=== PATIENT | female | born 1975 | race Caucasian/White ===

== ENCOUNTER 2024-03-26 19:58 | Emergency (ER) | payer OTHER ==
[2024-03-26 20:23] VITALS: TEMP 97.7
--- NOTE | 2024-03-26 20:24 | ERPHSYRPT ---
- History of Present Illness Time Seen by Provider: 03/26/24 20:22 Source: patient Exam Limitations: no limitations Physician History: 48-year-old female presents to our ED accompanied by her for evaluation of symptoms developed after a B12 shot. Patient had a B12 shot today. Shortly thereafter within minutes patient began to experience dizziness heart palpita tions cramping of her hands. No chest pain. Mild short of breath. No vomiting no diarrhea no rash. No fever. Patient states the dizziness resolved but she is still experiencing cramping of her hands. On exam cramping of her hands were observed with spasms of her thenar eminence muscles. Patient otherwise feels well. She is conversant and in no acute distress. at bedside. They voiced no other complaints or concerns at this time. Portions of this note were created with voice recognition technology. There may be grammatical, spelling, punctuation or sound alike errors Timing/Duration: today Severity: moderate Modifying Factors: Improves With: nothing Associated Symptoms: denies symptoms Allergies/Adverse Reactions: No Known Drug Allergies Allergy (Verified 03/26/24 20:07) Home Medications: Sertraline HCl [Zoloft] 100 mg PO DAILY 08/24/21 [History] Dextroamphetamine/Amphetamine [Adderall Xr 5 mg Capsule] 5 mg PO DAILY 03/26/24 [History] Losartan/Hydrochlorothiazide [Losartan-Hctz 50-12.5 mg Tab] 1 each PO DAILY 03/26/24 [History] Hx Tetanus, Diphtheria Vaccination/Date Given: Yes Hx Influenza Vaccination/Date Given: No Hx Pneumococcal Vaccination/Date Given: No - Review of Systems Constitutional: No Symptoms, No Fever, No Chills Eyes: No Symptoms Ears, Nose, & Throat: No Symptoms Respiratory: No Symptoms, No Cough, No Dyspnea Cardiac: No Symptoms, No Chest Pain, No Edema, No Syncope Abdominal/Gastrointestinal: No Symptoms, No Abdominal Pain, No Nausea, No Vom iting, No Diarrhea Genitourinary Symptoms: No Symptoms, No Dysuria Musculoskeletal: No Symptoms, No Back Pain, No Neck Pain Skin: No Symptoms, No Rash Neurological: No Symptoms, No Dizziness, No Focal Weakness, No Sensory Changes Psychological: No Symptoms Endocrine: No Symptoms Hematologic/Lymphatic: No Symptoms Immunological/Allergic: No Symptoms All Other Systems: Reviewed and Negative - Past Medical History Pertinent Past Medical History: Yes Neurological History: No Pertinent History ENT History: No Pertinent History Cardiac History: Hypertension Respiratory History: No Pertinent History Endocrine Medical History: No Pertinent History Musculoskeletal History: Fractures GI Medical History: No Pertinent History History: No Pertinent History Psycho-Social History: Depression Female Reproductive Disorders: No Pertinent History Other Medical History: skin ca - Past Surgical History Past Surgical History: Yes (2018) Neuro Surgical History: No Pertinent History Cardiac: No Pertinent History Gastrointestinal: No Pertinent History Genitourinary: No Pertinent History Musculoskeletal: Orthopedic Surgery Female Surgical History: Other Other Surgical History: ablasion, foot, cancer removal - Social History Smoking Status: Current every day smoker How long have you smoked: 28 yrs Exposure to second hand smoke: Yes Drug Use: none Patient Lives Alone: No - Nursing Vital Signs Nursing Vital Signs: Initial Vital Signs Pulse Rate 89 03/26/24 20:08 Respiratory Rate 17 03/26/24 20:08 Blood Pressure 149/83 03/26/24 20:08 O2 Sat by Pulse Oximetry 100 03/26/24 20:08 Pain Scale Pain Intensity 0 - Physical Exam General Appearance: no apparent distress, alert Eye Exam: PERRL/EOMI, eyes nml inspection Ears, Nose, Throat Exam: normal ENT inspection, TMs normal, pharynx normal, moist mucous membranes Neck Exam: normal inspection, non-tender, supple, full range of motion Respiratory Exam: normal breath sounds, lungs clear, airway intact, No respiratory distress Cardiovascular Exam: regular rate/rhythm, normal heart sounds, normal peripheral pulses Gastrointestinal/Abdomen Exam: soft, normal bowel sounds, No tenderness, No mass Back Exam: normal inspection, normal range of motion, No CVA tenderness, No vertebral tenderness Extremity Exam: normal inspection, normal range of motion, pelvis stable Neurologic Exam: alert, oriented x 3, cooperative, legal secretary II-XII nml as tested, normal mood/affect, sensation nml, No motor deficits Skin Exam: normal color, warm, dry, No rash Lymphatic Exam: No adenopathy SpO2 Interpretation: normal SpO2: 100 O2 Delivery: Room Air - Course Nursing assessment & vital signs reviewed: Yes - CT Exams Head CT Interpretation: Tele-radiologist Report (No acute findings) Ordered Tests: Active Orders 24 hr Category Date Time Status AMA [Release AMA] [email or web address] Care 03/27/24 01:45 Ordered AMA [Release AMA] OM.[email or web address] Care 03/27/24 01:48 Completed Contracts Director STAT Care 03/26/24 20:21 Active EKG-ER Only STAT Care 03/26/24 20:19 Active IV Insertion STAT Care 03/26/24 20:19 Active Pulse Oximetry (ED) STAT Care 03/26/24 20:19 Active HEAD WITHOUT CONTRAST [CT] Stat Exams 03/26/24 22:43 Completed CBC W DIFF Stat Lab 03/26/24 20:25 Completed CMP Stat Lab 03/26/24 20:25 Completed CULTURE,URINE Stat Lab 03/26/24 21:47 Received MAGNESIUM Stat Lab 03/26/24 20:25 Completed TROPONIN Q4H Lab 03/26/24 20:25 Completed TROPONIN Q4H Lab 03/27/24 00:30 Completed UA W/RFX UR CULTURE Stat Lab 03/26/24 21:47 Completed Medication Summary Discontinued Medications Generic Name Dose Route Start Last Admin Trade Name Freq PRN Reason Stop Dose Admin Aspirin 324 mg 03/27/24 01:07 03/27/24 01:11 Aspirin 81 Mg Tab.Chew PO 03/27/24 01:08 324 mg STAT ONE Administration Aspirin Confirm 03/27/24 01:10 Aspirin 81 Mg Tab.Chew Administered 03/27/24 01:11 Dose 324 mg .ROUTE .STK-MED ONE Sodium Chloride 1,000 mls @ 999 mls/hr 03/26/24 21:44 03/26/24 22:53 Sodium Chloride 0.9% 1000 Ml IV 03/26/24 22:44 Infused .Q1H1M STA Infusion Sodium Chloride Confirm 03/26/24 21:45 Sodium Chloride 0.9% 1000 Ml Administered 03/26/24 21:46 Dose 1,000 mls @ ud .ROUTE .STK-MED ONE Nitrofurantoin Macrocrystals 100 mg 03/26/24 22:16 03/26/24 22:19 Nitrofurantoin Macro 100 Mg Capsule PO 03/26/24 22:17 100 mg STAT ONE Administration Nitrofurantoin Macrocrystals Confirm 03/26/24 22:19 Nitrofurantoin Macro 100 Mg Capsule Administered 03/26/24 22:20 Dose 100 mg .ROUTE .STK-MED ONE Lab/Rad Data: Laboratory Result Diagrams 03/26/24 20:25 03/26/24 20:25 Laboratory Results 03/27/24 03/26/24 03/26/24 Range/Units 00:30 21:47 20:25 WBC (3.98-10.04) x10^3/uL RBC (3.93-5.22) x10^6/uL Hgb (11.2-15.7) g/dL Hct (34.1-44.9) % MCV (79.4-94.8) fL MCH (25.6-32.2) pg MCHC (32.2-35.5) g/dL RDW (11.7-14.4) % Plt Count (182-369) x10^3/uL MPV (9.4-12.3) fL Gran % (34.0-71.1) % Immature Gran % (Auto) (0.001-0.429) % Nucleat RBC Rel Count (0.00-0.2) % Eos # (Auto) (0.04-0.36) x10^3/uL Immature Gran # (Auto) (0.001-0.031) x10^3u/L Absolute Lymphs (auto) (1.18-3.74) x10^3/uL Absolute Monos (auto) (0.24-0.86) x10^3/uL Absolute Nucleated RBC (0.00-0.012) x10^3u/L Lymphocytes % (19.3-51.7) % Monocytes % (4.7-12.5) % Eosinophils % (0.7-5.8) % Basophils % (0.1-1.2) % Absolute Granulocytes (1.56-6.13) x10^3/uL Basophils # (0.01-0.08) x10^3/uL Sodium (135-145) mmol/L Potassium (3.5-5.1) mmol/L Chloride (98-107) mmol/L Carbon Dioxide (22-30) mmol/L Anion Gap (5-15) MEQ/L BUN (7-17) mg/dL Creatinine (0.52-1.04) mg/dL Estimated GFR ML/MIN Glucose (74-106) mg/dL Calcium (8.4-10.2) mg/dL Magnesium (1.6-2.3) mg/dL Total Bilirubin (0.2-1.3) mg/dL AST (14-36) U/L ALT (0-35) U/L Alkaline Phosphatase (38-126) U/L Troponin I < 0.012 < 0.012 (0.000-0.033) ng/mL Serum Total Protein (6.3-8.2) g/dL Albumin (3.5-5.0) g/dL Urine Color Yellow (Yellow) Urine Appearance Cloudy A (Clear) Urine pH 6.5 (4.6-8.0) Ur Specific Davis 1.015 (1.005-1.030) Urine Protein Negative (Negative) Urine Glucose (UA) Negative (Negative) mg/dL Urine Ketones Negative (Negative) Urine Blood Trace (Negative) Urine Nitrite Negative (Negative) Urine Bilirubin Negative (Negative) Urine Urobilinogen 1.0 A (0.2) mg/dL Ur Leukocyte Esterase Moderate A (Negative) U Hyaline Cast (Auto) 3-5 A (0-2) /LPF Urine Microscopic RBC >100 A (0-5) /HPF Urine Microscopic WBC 6-10 A (0-5) /HPF Ur Epithelial Cells Few (None Seen) /HPF Urine Bacteria Many A (None Seen) /HPF Urine Culture Reflexed YES (NO) Slides for Path Review 03/26/24 03/26/24 Range/Units 20:25 20:25 WBC 11.5 H (3.98-10.04) x10^3/uL RBC 4.79 (3.93-5.22) x10^6/uL Hgb 15.2 (11.2-15.7) g/dL Hct 44.4 (34.1-44.9) % MCV 92.7 (79.4-94.8) fL MCH 31.7 (25.6-32.2) pg MCHC 34.2 (32.2-35.5) g/dL RDW 12.9 (11.7-14.4) % Plt Count 291 (182-369) x10^3/uL MPV 10.7 (9.4-12.3) fL Gran % 44.9 (34.0-71.1) % Immature Gran % (Auto) 0.3 (0.001-0.429) % Nucleat RBC Rel Count 0.0 (0.00-0.2) % Eos # (Auto) 0.19 (0.04-0.36) x10^3/uL Immature Gran # (Auto) 0.03 (0.001-0.031) x10^3u/L Absolute Lymphs (auto) 5.11 H (1.18-3.74) x10^3/uL Absolute Monos (auto) 0.88 H (0.24-0.86) x10^3/uL Absolute Nucleated RBC 0.00 (0.00-0.012) x10^3u/L Lymphocytes % 44.6 (19.3-51.7) % Monocytes % 7.7 (4.7-12.5) % Eosinophils % 1.7 (0.7-5.8) % Basophils % 0.8 (0.1-1.2) % Absolute Granulocytes 5.15 (1.56-6.13) x10^3/uL Basophils # 0.09 H (0.01-0.08) x10^3/uL Sodium 139 (135-145) mmol/L Potassium 3.7 (3.5-5.1) mmol/L Chloride 103 (98-107) mmol/L Carbon Dioxide 28 (22-30) mmol/L Anion Gap 12.0 (5-15) MEQ/L BUN 15 (7-17) mg/dL Creatinine 0.89 (0.52-1.04) mg/dL Estimated GFR 80.4 ML/MIN Glucose 99 (74-106) mg/dL Calcium 9.8 (8.4-10.2) mg/dL Magnesium 2.2 (1.6-2.3) mg/dL Total Bilirubin 0.40 (0.2-1.3) mg/dL AST 19 (14-36) U/L ALT 14 (0-35) U/L Alkaline Phosphatase 63 (38-126) U/L Troponin I (0.000-0.033) ng/mL Serum Total Protein 7.0 (6.3-8.2) g/dL Albumin 4.0 (3.5-5.0) g/dL Urine Color (Yellow) Urine Appearance (Clear) Urine pH (4.6-8.0) Ur Specific Davis (1.005-1.030) Urine Protein (Negative) Urine Glucose (UA) (Negative) mg/dL Urine Ketones (Negative) Urine Blood (Negative) Urine Nitrite (Negative) Urine Bilirubin (Negative) Urine Urobilinogen (0.2) mg/dL Ur Leukocyte Esterase (Negative) U Hyaline Cast (Auto) (0-2) /LPF Urine Microscopic RBC (0-5) /HPF Urine Microscopic WBC (0-5) /HPF Ur Epithelial Cells (None Seen) /HPF Urine Bacteria (None Seen) /HPF Urine Culture Reflexed (NO) Slides for Path Review YES - Progress Progress: improved Progress Note: 48-year-old female presents to our ED for evaluation of dizziness, heart palpitations, hand cramping. Symptoms started after a dose of B12. Physical exam essentially nonremarkable. Laboratory workup essentially nonremarkable. Urinalysis reveals a urinary tract infection Macrobid administered. CT head negative for acute intracranial pathology. We consulted with teleneurology. There is some issue or misunderstanding with the neurologist and our patient. The neurologist thought patient was someone else. Apparently this did not sit well with our patients and so she decided to leave AGAINST MEDICAL ADVICE. A prescription for Macrobid forwarded to patient's pharmacy. Antibiotic dose administered in our ED. Patient agrees to follow-up with her primary care doctor within 48 hours for reevaluation. Portions of this note were created with voice recognition technology. There may be grammatical, spelling, punctuation or sound alike errors Patient states that she is no longer symptomatic is hungry and just wants to go home. Patient is of sound mind. Patient is appropriate to make informed and independent medical decisions. Patient understands that leaving AGAINST MEDICAL ADVICE can result in delayed diagnosis, increased risk of morbidity, mortality, short and long-term disability including . In spite of these risks, patient has decided to leave AGAINST MEDICAL ADVICE. Patient understands that she may return to our ED at any point if she reconsiders. Patient agrees to follow-up with her primary care doctor within 48 hours for reevaluation. Cesar butler voices no other complaints or concerns at this time. We will release patient AGAINST MEDICAL ADVICE per their request. Complexity problem addressed is moderate acute complicated. No critical care time. Complex of data reviewed and analyzed is extensive. Test ordered test reviewed results analyzed and correlated clinically with history and physical examination. I discussed the case with neurologist however he was unable to complete his exam. Risk of complication and or risk of morbidity/mortality patient management is moderate. A prescription for Macrobid forwarded to patient's pharmacy. Vital stable. Will discharge home. No social determinants of health present impede follow-up. Portions of this note were created with voice recognition technology. There may be grammatical, spelling, punctuation or sound alike errors 03/27/24 01:45 Counseled pt/family regarding: lab results, diagnosis, need for follow-up, rad results - Departure Departure Disposition: Home Clinical Impression: Dizziness, UTI (urinary tract infection) Condition: Stable Critical Care Time: No Referrals: EFE LARA FNP [Primary Care Provider] - Follow up/PCP as directed Instructions: Urinary Tract Infection, Adult ED, Dizziness, Adult ED Additional Instructions: Discharge/Care Plan ODESSA MORENO was seen on 03/26/24 in the Emergency Room. The patient was counseled regarding Diagnosis,Lab results, Imaging studies, need for follow up and when to return to the Emergency Room. Prescriptions given: Discharge Note I have spoken with the patient and/or caregivers. I have explained the patient's condition, diagnosis and treatment plan based on the information available to me at this time. I have answered the patient's and/or caregiver's questions and addressed any concerns. The patient and/or caregivers have as good understanding of the patient's diagnosis, condition and treatment plan as can be expected at this point. The vital signs have been stable. The patient's condition is stable and appropriate for discharge from the emergency department. The patient will pursue further outpatient evaluation with the primary care physician or other designated or consulting physician as outlined in the discharge instructions. The patient and/or caregivers are agreeable to this plan of care and follow-up instructions have been explained in detail. The patient and/or caregivers have received these instruction. The patient/and or caregivers are aware that any significant change in condition or worsening of symptoms should prompt an immediate return to this or the closest emergency department or call 911. Prescriptions: Nitrofurantoin Macro 100 mg [Macrobid 100MG Capsule] 100 mg PO BID 7 Days #14 cap
[2024-03-26 20:32] LABS: Absolute Neutrophil Ct (ANC) 5.15 x10^3/uL (1.56-6.13); BASOPHIL % 0.8 % (0.1-1.2); Basophil (Absolute #) 0.09 x10^3/uL (0.01-0.08); Eosinophil % 1.7 % (0.7-5.8); Eosinophil (Absolute #) 0.19 x10^3/uL (0.04-0.36); Hematocrit 44.4 % (34.1-44.9); Hemoglobin 15.2 g/dL (11.2-15.7); IMMATURE GRAN # 0.03 x10^3u/L (0.001-0.031); IMMATURE GRAN % 0.3 % (0.001-0.429); Lymphocyte (Absolute #) 5.11 x10^3/uL (1.18-3.74); Lymphocytes % 44.6 % (19.3-51.7); Mean Cell Volume 92.7 fL (79.4-94.8); Mean Corpuscular Hemoglobin 31.7 pg (25.6-32.2); Mean Corpuscular Hgb Concent. 34.2 g/dL (32.2-35.5); Mean Platelet Volume 10.7 fL (9.4-12.3); Monocyte (Absolute #) 0.88 x10^3/uL (0.24-0.86); Monocytes % 7.7 % (4.7-12.5); Neutrophil % 44.9 % (34.0-71.1); Platelet Count 291 x10^3/uL (182-369); Red Blood Count 4.79 x10^6/uL (3.93-5.22); Red Cell Distribution Width 12.9 % (11.7-14.4); White Blood Count 11.5 x10^3/uL (3.98-10.04)
[2024-03-26 20:47] LABS: BILIRUBIN,TOTAL 0.4 mg/dL (0.2-1.3); Calcium 9.8 mg/dL (8.4-10.2); Creatinine 1 0.89 mg/dL (0.52-1.04); EST GLOMERULAR FILTRATION RATE 80.4 ML/MIN; MAGNESIUM 2.2 mg/dL (1.6-2.3); Potassium 3.7 mmol/L (3.5-5.1)
[2024-03-26] MEDS ORDERED: Sodium Chloride 0.9% 1000 ML 1,000 ML ONE (21:45)
[2024-03-26] MEDS: Sodium Chloride 0.9% 1000 ML 1,000 ML IV STA (21:47)
[2024-03-26 22:02] LABS: Appearance Cloudy (Clear); Bacteria Many /HPF (None Seen); Bilirubin Negative (Negative); Blood Trace (Negative); Epithelial Cells Few /HPF (None Seen); Glucose, Urine Negative (Negative); Ketones Negative (Negative); Leukocyte Esterase Moderate (Negative); Nitrite Negative (Negative); Ph 6.5 (4.6-8.0); Protein,Urine Dip Negative (Negative); RBC >100 /HPF (0-5); Specific Gravity 1.015 (1.005-1.030)
[2024-03-26 22:03] LABS: ADD URINE CULTURE? YES (NO)
[2024-03-26] MEDS ORDERED: Macrobid 100MG Capsule ONE (22:19)
[2024-03-26] MEDS: Macrobid 100MG Capsule PO ONE (22:19)
[2024-03-26 22:22] LABS: Slide Review 1 YES
--- NOTE | 2024-03-26 23:42 | XRAY ---
CLINICAL HISTORY: dizziness COMPARISON: None TECHNIQUE: Axial noncontrast CT scan of the brain was performed from the skull base to the high parietal region. One of the following dose reduction techniques were utilized for this exam: Automated exposure control, adjustment of the mA and/or kV according to patient size, use of iterative reconstruction. FINDINGS: The visualized brain parenchyma shows a normal appearance. Deutsch-white matter differentiation is maintained. Small hypodense focus is identified in the right basal ganglia. This may represent a prominent CSF space/chronic lacunar infarct. No midline shifts or deformity. No intracerebral or extra axial hematoma. Normal size and configuration of the cerebral ventricles. Normal CT appearance of the posterior fossa structures namely the cerebellar hemispheres, brainstem and cerebellar peduncles. The IACs are unremarkable. The cerebello-pontine angles are clear. The osseous structures in the skull base are unremarkable. No definite calvarium fractures. Mucosal thickening within air-fluid level in the left sphenoid sinus representing acute left sphenoid sinusitis. Rest of the scanned paranasal sinuses are grossly clear. Bilateral mastoid air cells appear unremarkable. Hyperostosis frontalis interna noted. IMPRESSION: 1. No major acute territorial infarction/ abnormality seen on plain CT brain. 2. Early changes of stroke may not be detected on a CT scan. If strong clinical suspicion of stroke then suggest MRI with diffusion-weighted imaging. 3. Small hypodense focus in the right basal ganglia. This may represent a prominent CSF space/chronic lacunar infarct. [facility] was called at [phone] at 10:35 PM [employer], 03/26/2024 and stroke findings were communicated to [facility]. Electronically Signed by: Sincere Torres MD. (03/26/2024 23:37:47 EDT)
[2024-03-27 01:03] VITALS: BP 123/76; PULSE 84; RESP 17
[2024-03-27] MEDS ORDERED: BABY ASPIRIN 81 MG CHEW ONE (01:10)
[2024-03-27] MEDS: BABY ASPIRIN 81 MG CHEW PO ONE (01:11)
[2024-03-27 02:11] VITALS: O2SAT 100
== END 2024-03-27 01:56 | disposition left against medical advice (07) ==
LOC: ED 19:58
DX: R42 Dizziness and giddiness (principal); N39.0 Urinary tract infection, site not specified; R25.2 Cramp and spasm; I10 Essential (primary) hypertension; Z79.899 Other long term (current) drug therapy; Z72.0 Tobacco use
CPT/HCPCS: 36000; 36415; 70450; 80053; 81001; 83735; 84484; 85025; 87077; 87086; 87186; 93005; 93041; 94760; 96360; 99284; A9270-GY